=== PATIENT | female | born 1950 | race Caucasian/White ===

== ENCOUNTER → 2019-12-22 | Outpatient (CLI) | payer OTHER ==
[~2019-12-22] MED LIST: ASA5UEC PO; ASPIR 8181 M1 PO; ASPIRIN325 PO; CARDIZEM CD240 MG PO; COZAAR 50 MG TA50 M2 PO; CRESTOR20 MG PO; FLECAINIDE ACET50 M2 PO; LIPITOR 20 MG T20 M1 PO; LOPERAMIDE 2 MG2 M1 PO; MONODOX100 MG PO; OMEPRAZOLE 20 M20 M1 PO; PERCOCET 5-3251 EACH PO; PREDNISONE 10 M10 M1 PO; TOPROL XL25 MG PO; XARELTO20 MG PO
== END ==
LOC: SJCVCIMAG 10:36
PROVIDERS: ATTEND Nuclear Medicine Nuclear Cardiology
DX: I73.9 Peripheral vascular disease, unspecified (principal); I25.10 Atherosclerotic heart disease of native coronary artery without angina pectoris; I10 Essential (primary) hypertension; I48.0 Paroxysmal atrial fibrillation; E78.00 Pure hypercholesterolemia, unspecified; J44.9 Chronic obstructive pulmonary disease, unspecified; F17.210 Nicotine dependence, cigarettes, uncomplicated

== ENCOUNTER → 2020-01-05 | Outpatient (CLI) | payer OTHER ==
[~2020-01-05] VITALS: Ht 177.8 cm; Wt 108.9 kg
[2020-01-05 07:21] VITALS: BP 133/64
[2020-01-05 07:45] LABS: HEMATOCRIT 39.8 % (37.0-47.0); HEMOGLOBIN 13.4 gm/dL (12.0-15.0); MCH 30.1 pg (26.0-34.0); MCHC 33.6 g/dL (28.0-37.0); MCV 89.6 fL (80.0-100.0); RBC 4.44 mil/uL (4.20-5.00); RDW 16.3 % (10.5-14.5); WBC 8.9 thou/uL (4.0-11.0)
[2020-01-05 07:55] LABS: CALCIUM 8.8 mg/dL (8.5-10.1); POTASSIUM 4.4 mmol/L (3.5-5.1)
== END | disposition home or self-care (01) ==
LOC: CATH 06:40
PROVIDERS: ATTEND Nuclear Medicine Nuclear Cardiology
DX: I70.213 Atherosclerosis of native arteries of extremities with intermittent claudication, bilateral legs (principal); I70.248 Atherosclerosis of native arteries of left leg with ulceration of other part of lower leg; I70.1 Atherosclerosis of renal artery; L97.929 Non-pressure chronic ulcer of unspecified part of left lower leg with unspecified severity; I10 Essential (primary) hypertension; I25.10 Atherosclerotic heart disease of native coronary artery without angina pectoris; J44.9 Chronic obstructive pulmonary disease, unspecified; I48.91 Unspecified atrial fibrillation; E66.09 Other obesity due to excess calories; Z79.01 Long term (current) use of anticoagulants; F17.210 Nicotine dependence, cigarettes, uncomplicated; Z98.890 Other specified postprocedural states; Z79.899 Other long term (current) drug therapy; Z90.710 Acquired absence of both cervix and uterus

== ENCOUNTER → 2020-01-26 | Outpatient (CLI) | payer OTHER ==
[2020-01-26 10:45] LABS: PROTIME 9.9 Seconds (9.3-11.4)
== END | disposition home or self-care (01) ==
LOC: CAT 09:33
PROVIDERS: ATTEND Orthopaedic Surgery
DX: M51.36 Other intervertebral disc degeneration, lumbar region (principal); M48.061 Spinal stenosis, lumbar region without neurogenic claudication; M25.78 Osteophyte, vertebrae; Z98.890 Other specified postprocedural states; Z79.899 Other long term (current) drug therapy; Z79.82 Long term (current) use of aspirin

== ENCOUNTER → 2020-02-08 | Outpatient (CLI) | payer OTHER | LOC: SJCVCIMAG 09:55 | PROVIDERS: ATTEND Nuclear Medicine Nuclear Cardiology | DX: I08.2 Rheumatic disorders of both aortic and tricuspid valves (principal); I11.9 Hypertensive heart disease without heart failure; I73.9 Peripheral vascular disease, unspecified; E78.00 Pure hypercholesterolemia, unspecified; I25.10 Atherosclerotic heart disease of native coronary artery without angina pectoris; I65.23 Occlusion and stenosis of bilateral carotid arteries; I48.0 Paroxysmal atrial fibrillation; D68.59 Other primary thrombophilia; J44.9 Chronic obstructive pulmonary disease, unspecified; M48.062 Spinal stenosis, lumbar region with neurogenic claudication; F17.210 Nicotine dependence, cigarettes, uncomplicated; Z79.899 Other long term (current) drug therapy ==

== ENCOUNTER → 2020-09-17 | Outpatient (CLI) | payer OTHER | LOC: SJCVCIMAG 08:57 | PROVIDERS: ATTEND Nuclear Medicine Nuclear Cardiology | DX: I65.23 Occlusion and stenosis of bilateral carotid arteries (principal); R00.1 Bradycardia, unspecified; I70.201 Unspecified atherosclerosis of native arteries of extremities, right leg; I25.10 Atherosclerotic heart disease of native coronary artery without angina pectoris; I77.9 Disorder of arteries and arterioles, unspecified; E78.00 Pure hypercholesterolemia, unspecified; I10 Essential (primary) hypertension; I48.0 Paroxysmal atrial fibrillation; J44.9 Chronic obstructive pulmonary disease, unspecified; Z95.828 Presence of other vascular implants and grafts; Z79.82 Long term (current) use of aspirin; Z79.899 Other long term (current) drug therapy; Z87.891 Personal history of nicotine dependence; Z88.1 Allergy status to other antibiotic agents; Z88.8 Allergy status to other drugs, medicaments and biological substances ==

== ENCOUNTER → 2020-10-17 | Outpatient (CLI) | payer OTHER | LOC: RAD 10:03 | PROVIDERS: ATTEND Internal Medicine | DX: J44.9 Chronic obstructive pulmonary disease, unspecified (principal); J98.4 Other disorders of lung ==

== ENCOUNTER → 2020-11-06 | Outpatient (CLI) | payer OTHER ==
--- NOTE | ~2020-11-06 | PFR/MVV ---
[facility] [place] [address] PULMONARY FUNCTION MVV/REPORT Name: OLIVER CONRDA Room #: REG [facility]#: [id number] Admission: 11/06/20 Attend Phys: Behzad Boswell MD Discharge: Date of : 52 Report #: [id number] THIS REPORT FOR: //name// >> SPIROMETRY: (BTPS) Height: 70 in cm Weight: 250 lbs kg Exam Date: 11/06/20 PRE-RX POST-RX PRED BEST %PRED BEST %PRED %CHG FVC LITERS . 3.54 . 2.83 . 80 . 2.83 . 80 . 0 FEV1 LITERS . 2.57 . 1.03 . 79 . 20.5 . 80 . 1 FEV1/FVC % . 71 . 72 . 101 . 72 . 101 . 1 GCB83-41% L/Sec . 2.68 . 1.43 . 53 . 1.46 . 54 . 2 PEF L/SEC . 6.25 . 5.24 . 84 . 5.72 . 92 . 9 FEF50/FIF50 UNITLESS . 3.62 . 1.53 . 42 . 1.98 . 55 . 30 MVV L/Min . 85 . 67 . 79 f 1/Min . . . >> LUNG VOLUMES: (BTPS) PRE-RX POST-RX PRED AVG %PRED AVG %PRED %CHG VC Liters . 3.54 . 2.99 . 84 . . . TLC Liters . 6.03 . 5.68 . 94 . . . RV Liters . 2.41 . 2.69 . 111 . . . RV/TLC % . 40 . 47 . 118 . . . FRC PL Liters . 2.79 . 2.87 . 103 . . . FRC N2 Liters . 2.79 . . . . . ERV Liters . 1.21 . 0.24 . 20 . . . IC Liters . 2.42 . 2.81 . 116 . . . >> DIFFUSION: DLCO ml/Min/mmHg . 28.0 . 16.5 . 59 . . . DL Sukhjinder ml/Min/mmHg . 28.0 . 16.5 . 59 . . . DLCO/VA ml/Min/mmHg . 3.57 . 3.48 . 98 . . . VA Liters . . 4.74 . . . . COMMENTS: COMMENTS: >> RESISTANCE: [facility] [address] [place] [address] PULMONARY FUNCTION MVV/REPORT Name: OLIVER CONRAD Room #: REG [facility].#: [id number] Admission: 11/06/20 Attend Phys: Behzad Boswell MD Discharge: Date of : 52 Report #: [id number] PRE-RX PRED AVG %PRED Raw Total cmH20/L/Sec . . 5.01 . Raw Insp cmH20/L/Sec . . 3.26 . Raw Exp cmH20/L/Sec . . 4.79 . Raw cmH20/L/Sec . 1.37 . 3.76 . 274 Gaw L/Sec/cmH20 . 0.668 . 0.266 . 40 sRaw cmH20 Sec . 3.82 . 14.96 . 392 sGaw l/cmH20 Sec . 0.262 . 0.067 . 26 Vtq Liters . . 3.98 . # = OUTSIDE 95% CONFIDENCE INTERVAL CALIBRATION: PRED: 3.00 ACTUAL: EXP 3.01 INSP 3.02 [facility] [place] [id number] >> INTERPRETATION/IMPRESSION: DOC #: [id number] Niraj Whiting M.D. DATE OF SERVICE: 11/06/2020 PULMONARY FUNCTION STUDIES SPIROMETRY: FEV1 is 2.03 liters (79%), FVC is 2.83 liters (80%). FEV1/FVC ratio is 72%. There is no significant response to bronchodilator therapy. LUNG VOLUMES: Total lung capacity is 5.68 liters (94%), RV is 2.69 liters (111%). Diffusing capacity is 59%. IMPRESSION: Pulmonary function studies are consistent with a mild obstructive airflow defect with no significant response to bronchodilator therapy. Diffusing capacity is moderately decreased. Niraj IBARRA/LILLY By: Niraj Whiting MD /nt
== END ==
LOC: CAT 09:53
PROVIDERS: ATTEND Internal Medicine
DX: J43.9 Emphysema, unspecified (principal); J98.4 Other disorders of lung; Z12.2 Encounter for screening for malignant neoplasm of respiratory organs; Z87.891 Personal history of nicotine dependence

== ENCOUNTER → 2021-05-14 | Outpatient (CLI) | payer OTHER | LOC: SJCVCIMAG 10:42 | PROVIDERS: ATTEND Internal Medicine Cardiovascular Disease | DX: I73.9 Peripheral vascular disease, unspecified (principal); I77.9 Disorder of arteries and arterioles, unspecified; I25.10 Atherosclerotic heart disease of native coronary artery without angina pectoris; I10 Essential (primary) hypertension; I48.91 Unspecified atrial fibrillation; J44.9 Chronic obstructive pulmonary disease, unspecified; E78.00 Pure hypercholesterolemia, unspecified; Z72.0 Tobacco use; Z88.8 Allergy status to other drugs, medicaments and biological substances; Z79.82 Long term (current) use of aspirin; Z79.899 Other long term (current) drug therapy ==